=== PATIENT | female | born 1995 | race Caucasian/White ===

== ENCOUNTER 2017-09-21 04:26 | Emergency (ER) | payer BC ==
[~2017-09-21] VITALS: Ht 165.1 cm; Wt 77.1 kg
[~2017-09-21 04:26] MED LIST: Amoxicillin500 MG PO; Bactrim Ds Tab1 EACH PO; Flagyl500 MG PO; MEDR150I IM; Zofran Odt4 MG SL
[2017-09-21] MEDS ORDERED: DEPRESSION MED (04:50)
[2018-07-05] MEDS ORDERED: Macrobid 100 M100 MG PO (17:53)
== END 2017-09-21 06:18 | disposition home or self-care (01) ==
LOC: ER 04:26
DX: R06.02 Shortness of breath (principal); Z91.018 Allergy to other foods; Z79.899 Other long term (current) drug therapy
CPT/HCPCS: 71046; 93005; 93010; 94640; 99283

== ENCOUNTER → 2018-03-23 | Outpatient (CLI) | payer BC ==
[~2018-03-23] MED LIST changes: +DEPRESSION MED
== END | disposition home or self-care (01) ==
LOC: LAB SHORT 17:17 → LAB EV 17:17
DX: R11.2 Nausea with vomiting, unspecified (principal)
CPT/HCPCS: 84702

== ENCOUNTER → 2018-04-26 | Outpatient (CLI) | payer BC ==
[2018-04-28 23:08] LABS: CHLAMYDIA TRACHOMATIS, NAA Negative (Negative); NEISSERIA GONORRHOEAE, NAA Negative (Negative)
== END | disposition home or self-care (01) ==
LOC: LAB 17:30 → LAB SHORT 17:30
PROVIDERS: Obstetrics & Gynecology
DX: Z34.01 Encounter for supervision of normal first pregnancy, first trimester (principal)
CPT/HCPCS: 87491; 87591; G0123

== ENCOUNTER → 2018-10-27 | Outpatient (CLI) | payer BC, OTHER ==
[~2018-10-27] MED LIST changes: +Macrobid 100 M100 MG PO
== END | disposition home or self-care (01) ==
LOC: LAB SHORT 15:26 → LAB 15:26
DX: Z34.83 Encounter for supervision of other normal pregnancy, third trimester (principal); Z3A.36 36 weeks gestation of pregnancy
CPT/HCPCS: 87081; 87653

== ENCOUNTER 2018-11-13 17:07 | Inpatient (IN) | payer BC, OTHER ==
[~2018-11-13] VITALS: Ht 167.6 cm; Wt 0.3 kg
[2018-11-13] MEDS ORDERED: Verotin-Gr Cap1 EACH PO (19:46)
[2018-11-13] MEDS ORDERED: Tylenol325 MG PO (19:47)
[2018-11-13 20:04] LABS: BASOPHILS ABSOLUTE AUTO 0.03 K/mm3 (0.00-0.23); BASOPHILS PERCENT AUTO 0 % (0-2); EOSINOPHILS ABSOLUTE AUTO 0.06 K/mm3 (0.00-0.68); EOSINOPHILS PERCENT AUTO 1 % (0-6); Hematocrit 29.4 % (33.0-51.0); Hemoglobin 8.9 g/dL (11.5-16.0); IMMATURE GRAN ABSOLUTE AUTO 0.09 K/mm3 (0.00-0.10); IMMATURE GRAN PERCENT AUTO 1 % (0-1); LYMPHOCYTES ABSOLUTE AUTO 2.08 K/mm3 (0.84-5.20); LYMPHOCYTES PERCENT AUTO 21 % (21-46); MONOCYTES ABSOLUTE AUTO 0.57 K/mm3 (0.16-1.47); MONOCYTES PERCENT AUTO 6 % (4-13); Mean Corpuscular HGB 23.7 pg (26.0-34.0); Mean Corpuscular HGB Conc 30.3 g/dL (31.5-36.5); Mean Corpuscular Volume 78 fL (80-100); Mean Platelet Volume 10.4 fL (9.1-12.4); NEUTROPHILS ABSOLUTE AUTO 7.27 K/mm3 (1.96-9.15); NEUTROPHILS PERCENT AUTO 72 % (41-73); Platelet Count 200 K/mm3 (150-400); RDW Coefficient Variation 14.9 % (11.7-14.2); RDW Standard Deviation 42.2 fL (35.1-46.3); Red Blood Cell Count 3.76 M/mm3 (3.80-5.20)
--- NOTE | 2018-11-13 21:15 | NUR ---
PROVIDER UPDATED. IF NO CHANGE IN CERVIX. PT MAY HAVE THERAPEUTIC SLEEP AND REASSESS IN AM.
[2018-11-15 05:30] LABS: BASOPHILS ABSOLUTE AUTO 0.04 K/mm3 (0.00-0.23); BASOPHILS PERCENT AUTO 0 % (0-2); EOSINOPHILS PERCENT AUTO 0 % (0-6); Hematocrit 22.8 % (33.0-51.0); Hemoglobin 6.7 g/dL (11.5-16.0); IMMATURE GRAN ABSOLUTE AUTO 0.11 K/mm3 (0.00-0.10); IMMATURE GRAN PERCENT AUTO 1 % (0-1); LYMPHOCYTES ABSOLUTE AUTO 1.32 K/mm3 (0.84-5.20); LYMPHOCYTES PERCENT AUTO 7 % (21-46); MONOCYTES ABSOLUTE AUTO 1.19 K/mm3 (0.16-1.47); MONOCYTES PERCENT AUTO 6 % (4-13); Mean Corpuscular HGB 23.8 pg (26.0-34.0); Mean Corpuscular HGB Conc 29.4 g/dL (31.5-36.5); Mean Platelet Volume 10.7 fL (9.1-12.4); NEUTROPHILS PERCENT AUTO 87 % (41-73); Platelet Count 204 K/mm3 (150-400); RDW Coefficient Variation 15.1 % (11.7-14.2); RDW Standard Deviation 44.4 fL (35.1-46.3); Red Blood Cell Count 2.82 M/mm3 (3.80-5.20); White Blood Cell Count 20.36 K/mm3 (4.00-11.30)
[2018-11-15 05:34] LABS: Mean Corpuscular Volume 81 fL (80-100)
--- NOTE | 2018-11-15 09:30 | NUR ---
PT LAYING IN BED WITH NB SLEEPING, RN INSTRUCTED PT TO PUT NB IN CRIB WHEN FALLING ASLEEP TO REDUCE RISK OF SIDS, PT VERBALIZED UNDERSTANDING AND RN PLACE NB IN BED
--- NOTE | 2018-11-15 10:20 | NUR ---
BLOOD TRANSFUSSION STARTED, BLOOD PRODUCT VERIFIED IN BLOOD BANK AND AT BEDSIDE WITH Mk FIGUEROA RN. PT DECLINES NEED TO GET UP AND USE RESTROOM. RN WILL CONTINUE TO MONITOR. NO OBVIOUS SIGNS OF TRANSFUSSION REACTION.
[2018-11-16 06:27] LABS: BASOPHILS ABSOLUTE AUTO 0.04 K/mm3 (0.00-0.23); BASOPHILS PERCENT AUTO 0 % (0-2); EOSINOPHILS ABSOLUTE AUTO 0.11 K/mm3 (0.00-0.68); EOSINOPHILS PERCENT AUTO 1 % (0-6); Hematocrit 24.1 % (33.0-51.0); Hemoglobin 7.7 g/dL (11.5-16.0); IMMATURE GRAN ABSOLUTE AUTO 0.13 K/mm3 (0.00-0.10); IMMATURE GRAN PERCENT AUTO 1 % (0-1); LYMPHOCYTES ABSOLUTE AUTO 2.64 K/mm3 (0.84-5.20); LYMPHOCYTES PERCENT AUTO 18 % (21-46); MONOCYTES ABSOLUTE AUTO 1.13 K/mm3 (0.16-1.47); MONOCYTES PERCENT AUTO 8 % (4-13); Mean Corpuscular HGB 25.6 pg (26.0-34.0); Mean Corpuscular Volume 80 fL (80-100); Mean Platelet Volume 10.4 fL (9.1-12.4); NEUTROPHILS ABSOLUTE AUTO 10.61 K/mm3 (1.96-9.15); NEUTROPHILS PERCENT AUTO 72 % (41-73); Platelet Count 173 K/mm3 (150-400); RDW Coefficient Variation 15.6 % (11.7-14.2); RDW Standard Deviation 44.9 fL (35.1-46.3); Red Blood Cell Count 3.01 M/mm3 (3.80-5.20); White Blood Cell Count 14.66 K/mm3 (4.00-11.30)
--- NOTE | 2018-11-16 09:21 | NUR ---
REPORT TO LELO KHAN RN
--- NOTE | 2018-11-16 10:34 | NUR ---
CONSULT. STATES BABY IS DOING OK WITH LATCHING, NIPPLES MILDLY SORE, NO CRACKS OR SCABS. INSTRUCT IN CHANGES TO EXPECT DURING THE FIRST WEEK WITH BABY AND WITH FEEDINGS AND REFERRED TO BF BROCHURE FOR PHOTOS AND INFORMATION. BABY ASLEEP IN CRIB. DENIES NEEDING ANY HELP. INSTRUCT TO BRING BABY HUNGRY TO PPFU VISIT SO THAT LATCH CAN BE EVALUATED. DENIES ANY QUESTIONS.
--- NOTE | 2018-11-16 10:35 | NUR ---
PT DISCHARGED TO HOME. DISCHARGE INSTRUCTIONS GIVEN. NO QUESTIONS OR CONCERNS AT THIS TIME. PARENTS ADVISED TO CALL IF THEY HAVE ANY PROBLEMS OR CONCERNS.
== END 2018-11-16 11:20 | disposition home or self-care (01) | DRG 806 ==
LOC: ER 17:07 → EDSTATUS 17:33 → BC 17:41 → OBS 17:41 → BC 17:43 → OBS 19:30 → BC 19:30
PROVIDERS: ADMIT Obstetrics & Gynecology
PROC: 10907ZC Drainage of Amniotic Fluid, Therapeutic from Products of Conception, Via Natural or Artificial Opening (ICD-10-PCS; 2018-11-13)
PROC: 00HU33Z Insertion of Infusion Device into Spinal Canal, Percutaneous Approach (ICD-10-PCS; 2018-11-13)
PROC: 3E0R3BZ Introduction of Anesthetic Agent into Spinal Canal, Percutaneous Approach (ICD-10-PCS; 2018-11-13)
PROC: 10D17Z9 Manual Extraction of Products of Conception, Retained, Via Natural or Artificial Opening (ICD-10-PCS; 2018-11-13)
PROC: 10E0XZZ Delivery of Products of Conception, External Approach (ICD-10-PCS; principal; 2018-11-14)
PROC: 0KQM0ZZ Repair Perineum Muscle, Open Approach (ICD-10-PCS; 2018-11-14)
PROC: 3E033VJ Introduction of Other Hormone into Peripheral Vein, Percutaneous Approach (ICD-10-PCS; 2018-11-14)
PROC: 30233N1 Transfusion of Nonautologous Red Blood Cells into Peripheral Vein, Percutaneous Approach (ICD-10-PCS; 2018-11-15)
DX: O98.52 Other viral diseases complicating childbirth (principal); O72.2 Delayed and secondary postpartum hemorrhage; Z37.0 Single live birth; B00.9 Herpesviral infection, unspecified; O70.1 Second degree perineal laceration during delivery; Z3A.39 39 weeks gestation of pregnancy; O90.81 Anemia of the puerperium; J45.909 Unspecified asthma, uncomplicated; O99.62 Diseases of the digestive system complicating childbirth; K21.9 Gastro-esophageal reflux disease without esophagitis
CPT/HCPCS: 36415; 36430; 51702; 59025; 85025; 85460; 86850; 86870; 86900; 86901; 86920; 96372; 99214; J1885; J2001; J2210; J2270; J2405; J2550; J2590; J2790; J3010; J7120; P9016